=== PATIENT | female | born 1985 | race Caucasian/White ===

== ENCOUNTER → 2018-08-15 05:33 | Observation (INO) ==
[2018-08-15 03:33] LABS: Bilirubin,Urine Negative (Negative); Blood,Urine Negative (Negative); Clarity,Urine Clear (Clear); Color,Urine Yellow (Yellow); Glucose,Urine (UA) Normal (Normal); Ketones,Urine Negative (Negative); Leukocyte Esterase,Urine Negative (Negative); Nitrite,Urine Negative (Negative); PH,Urine 7.5 pH Units (5.0-8.0); Protein,Urine Negative (Neg-Trace); Specific Gravity,Urine 1.018 (1.010-1.025); Urobilinogen,Urine Normal (Normal)
[2018-08-15 03:41] LABS: Amphetamine Screen,Urine Negative ng/mL (Cutoff=1000); Barbiturate Screen,Urine Negative ng/mL (Cutoff=200); Benzodiazepines Screen,Urine Negative ng/mL (Cutoff=200); Cannabinoid Screen,Urine Negative ng/mL (Cutoff = 50); Cocaine Screen,Urine Negative ng/mL (Cutoff= 300); Opiate Screen,Urine Negative ng/mL (Cutoff=300); Phencyclidine Screen,Urine Negative ng/mL (Cutoff=25)
== END | disposition home or self-care (01) ==
LOC: 1NENULAB
PROVIDERS: ADMIT Registered Nurse; ATTEND Registered Nurse

== ENCOUNTER 2018-08-15 15:06 | Inpatient (IN) ==
[2018-08-15 16:05] LABS: Amphetamine Screen,Urine Negative ng/mL (Cutoff=1000); Barbiturate Screen,Urine Negative ng/mL (Cutoff=200); Benzodiazepines Screen,Urine Negative ng/mL (Cutoff=200); Cannabinoid Screen,Urine Negative ng/mL (Cutoff = 50); Cocaine Screen,Urine Negative ng/mL (Cutoff= 300); Opiate Screen,Urine Negative ng/mL (Cutoff=300); Phencyclidine Screen,Urine Negative ng/mL (Cutoff=25)
[2018-08-15] MEDS ORDERED: Metoclopramide 10 MG/2 ML VIAL IVP PRN (16:27)
[2018-08-15] MEDS ORDERED: Lidocaine 1% 20 ML MDV INFILT PRN (16:27)
[2018-08-15] MEDS ORDERED: Naloxone 0.4 MG/ML INJ IVP PRN (16:27)
[2018-08-15] MEDS ORDERED: Ondansetron 4 MG/2 ML VIAL IVP PRN (16:27)
[2018-08-15] MEDS ORDERED: *HR* Nalbuphine 10 MG/ML AMPUL IVP PRN (16:27)
[2018-08-15] MEDS ORDERED: Famotidine 20 MG/2 ML VIAL IVP PRN (16:27)
[2018-08-15] MEDS ORDERED: Ringers Solution, Lactated 1,000 ML IVC SCH (16:30)
[2018-08-15] MEDS ORDERED: Ringers Solution, Lactated 1,000 ML ONE (16:41)
[2018-08-15 17:31] LABS: Basophils # 0.1 K/mcL (0.0-0.2); Basophils % 0.4 %; Eosinophils % 0.2 %; Hematocrit 42.5 % (35.3-44.9); Hemoglobin 14.3 g/dL (11.5-15.4); Immature Granulocytes % 0.5 % (0-4); Lymphocytes # 1.5 K/mcL (0.6-4.6); Lymphocytes % 10.9 %; Mean Corpuscular HGB Conc 33.6 g/dL (31.6-35.5); Mean Corpuscular Hemoglobin 30.9 pg (28.0-33.3); Mean Corpuscular Volume 91.8 fL (83.0-100.0); Mean Platelet Volume 12.1 fL (9.4-12.4); Monocytes # 0.8 K/mcL (0.0-1.3); Monocytes % 5.9 %; Neutrophils # 11.5 K/mcL (1.6-8.9); Platelet Count 154 K/mcL (140-400); Red Blood Count 4.63 M/mcL (3.82-4.97); Segmented Neutrophils % 82.1 %
[2018-08-15] MEDS ORDERED: Oxytocin 20 units/ LR 1000 mL 20 UNIT/1,000 ML BAG IVC ONE (17:39)
[2018-08-15] MEDS ORDERED: Epidural Premix (fent/bupiv) 110 ML EP ONE (17:40)
[2018-08-15] MEDS ORDERED: Epidural Premix (fent/bupiv) 110 ML EP SCH (17:45)
--- NOTE | 2018-08-15 17:46 | OB/GYN History & Physical ---
Date of Encounter: 08/15/18 Time of Encounter: 17:44 Assessment and Plan (1) 37 weeks gestation of Current visit: No Status: Acute History of Present Illness Chief complaint: contractions HPI: Ms. Rivas is a 32 year old female who presents to labor and delivery in labor. She is currently 37 weeks and 5 days. On presentation she was now 3-4 cm progressing. She is elinor every 2 minutes. She has a category 1 tracing. She is breathing through her contractions. is vertex with a bulging membrane. She has allergies to Claritin and amoxicillin. She is currently on vitamins and iron sulfate . Socially she denies tobacco, alcohol, illicit drug use. Obstetric history significant for one term vaginal delivery. Family history significant for hypertension, kidney cancer, type 2 diabetes, lung cancer. Past Med Surg Social Fam HX - Past Medical History Medical history: migraine Psychiatric history: no psych history - Past Surgical History Additional surgical history: wisdom teeth - Social History Smoking Status: Never smoker Smokeless Tobacco Status: No Alcohol use: none Drug use: none - Family History Mother Adopted: No Family Member Ethnicity: Non- Living Status: Still Living Hx Family Cardiac Disorders: No Hx Family Respiratory Disorders: No Hx Family Cancer: No Hx Family GI Disorders: No Hx Family Genitourinary Disorders: No Hx Family Endocrine Disorder: No Hx Family Musculoskeletal Disorders: No Hx Family Neuromuscular Disorders: No Hx Family Neurologic Disorders: No Hx Family HEENT Disorders: No Hx Family Autoimmune Disorders: No Hx Family Reproductive Disorders: No Hx Family Psychosocial Disorders: No Hx Family Medical Disorders: No Obstetrical History - Pregnancies : 2 Para: 1 Livin Medications and Allergies Vitamins 150 mg PO DAILY 04/30/16 [History] Ferrous Sulfate/Vit C/FA [Folitab 500 Caplet] 1 each PO DAILY 08/15/18 [History] Allergy/AdvReac Type Severity Reaction Status Date / Time pseudoephedrine AdvReac See Verified 08/15/18 17:20 [facility] Comments Review of System OB All systems PM: reviewed and no additional remarkable complaints except as stated Exam - Constitutional Constitutional: well developed, well nourished, no acute distress, average body habitus - HEENT HEENT: EOMI, PERRL, Normocephaly - Neck Neck exam: full ROM - Lungs Respiratory exam: CTAB - Cardiovascular Cardiovascular exam: RRR - Abdomen Abdomen: Present: bowel sounds normal, gravid, non tender - Extremities Extremities exam: full ROM - Vagina Vagina: Present: normal moisture - Cervix Dilation: 7 Effacement: 100 Station: +2 - Uterus Uterus exam: Present: normal size Results Result Diagrams: 08/15/18 17:00 Abnormal lab results WBC 14.0 K/mcL (4.3-11.1) H 08/15/18 17:00 11.5 K/mcL (1.6-8.9) H 08/15/18 17:00 All other labs normal. - VTE Reasons for not Prescribing Prophylaxis: Treatment not Indicated - Low risk for VTE
--- NOTE | 2018-08-15 18:14 | Anesthesia Procedures ---
Date of Encounter: 08/15/18 Time of Encounter: 18:13 Procedures: Anesthesia - Epidural/Spinal Patient ID/Chart reviewed: Yes Patient examined: Yes OB Eval: Gestational age: 37.5 OB Eval: : 2 OB Eval: Hx Para: 1 OB Eval: Dilated at (cm): 7 OB Eval: Contractions: Non-stressed pattern Consent Obtained: Yes Supplemental Oxygen: None/Room Air Site Prep: Aseptic Technique, Sterile prep and drape, Povidone-Iodine 1% Patient position: upright Local Anesthetic: Lidocaine 1% Amount of Local Anesthetic used: 3 Touhy Needle Gauge: 18 Touhy Needle Depth (cm): 6 Catheter Depth at Skin (cm): 20 Test Dose (1.5% Lido + Epi): Volume given (mls): 5 Test Dose Result: Negative Loading Dose: Other: 10mls of epidural pharm bag premix Loading Dose Administered: Thru Catheter Infusion Med: 0.125% Bupivacaine w/ 2 mcg/ml Fentanyl Infusion Rate (mls/hr): 18 ([id number]) Catheter Secured in Place: Tegaderm, Tape Interspace Used: L4-L5 Loss of Resistance (LJ): Yes Blood: No CSF: No Paresthesia: No Spinal Needle Gauge: 25 (Sprotte dural puncture) Procedure: pt tolerated procedure well. no complications. vss. fhr stable.
--- NOTE | 2018-08-15 18:16 | Anesthesia Evaluation PreOp ---
Date of Encounter: 08/15/18 Time of Encounter: 18:14 - Past History Planned Operation: CHALO Cardiac History: Denies any Significant Hx Pulmonary History: Denies Any Significant HX JAVA PROGRAMMING PROFESSOR History: Denies Any Significant HX Other Medical History: Denies Any Significant HX Anesthesia History: No Prior Anesthetic Complications, Past Anesthesia : Yes (37.5) Alcohol Use: none Drug use: none Medications and Allergies Vitamins 150 mg PO DAILY 04/30/16 [History] Ferrous Sulfate/Vit C/FA [Folitab 500 Caplet] 1 each PO DAILY 08/15/18 [History] Allergy/AdvReac Type Severity Reaction Status Date / Time pseudoephedrine AdvReac See Verified 08/15/18 17:20 [From [facility]] Comments - Meds/Allergy Pre-op Review Medications Reviewed: Yes Allergies Reviewed: Yes Beta Blockers on Current Med List: No Anesthesia Results - Labs 08/15/18 17:00 Anesthesia Exam O2 Sat Height 1.78 m Height 1.78 m Weight 71.668 kg Weight 158 kg NPO (# of Hours): 4 Pain Scale: 10 Pain Scale Used: Numeric (1 - 10) - HEENT Pupil (Motor): Pupils equal Mallampati: II Teeth: Normal Oral Opening: Greater than 3 - JAVA PROGRAMMING PROFESSOR LOC: Oriented JAVA PROGRAMMING PROFESSOR Motor: Normal RUE, Normal LUE, Normal RLE, Normal LLE, Normal Face JAVA PROGRAMMING PROFESSOR Sensory: Normal: RUE, LUE, RLE, LLE, Face - Cardiac Rhythm: Regular Murmur: None JVD: No Carotid Bruit: No - Pulmonary Breath Sounds: bilateral Clear Respiratory Effort: Symmetrical Anesthesia Assess/Plan ASA Score: 2 Level of consciousness: Cooperative, Oriented Anesthetic Plan: General, Epidural Autologous Blood: Yes Monitoring Plan: Standard Monitors
--- NOTE | 2018-08-15 18:24 | Event Note ---
Date of Encounter: 08/15/18 Time of Encounter: 18:23 Patient doing well. Contractions every 2 minutes. Cervical check performed. Patient 9 cm, 100% effaced and +1 station. Artificial rupture membranes performed. Clear fluid returned. Category 1 tracing noted. Patient with epidural. Expectant management
[2018-08-15] MEDS ORDERED: Lidocaine/EPI 1:200k 2% PF 20 ML VIAL ONE (18:58)
--- NOTE | 2018-08-15 19:28 | OB/GYN Procedure Note ---
Delivery - Delivery Date: 08/15/18 Provider: Dipak Sepulveda Intrapartum events: none Delivery induction: none Delivery augmentation: rupture of membranes Delivery monitor: external FHT, external uterine Anesthesia: epidural Quantitated Blood Loss: 100 - (s) Infant A Delivery Date: 08/15/18 Infant Delivery Time: 19:10 Presentation: vertex Position: OA Route of delivery: Gender: Male Viability: Viable at 1 minute: 8 at 5 mins: 9 Shoulder Dystocia: not encountered Specimens collected: cord blood Placenta: spontaneous Cord: 3 umbilical vessels - Repair Episiotomy: none Laceration Description: Vaginal - Complications Delivery complications: none - Disposition Mom disposition: stable in LDR Mamou disposition: stable in LDR - Comments Comments: This patient progressed rapidly to complete and pushing. She had a rapid spontaneous vaginal delivery of a male infant over an intact perineum. Infant's head was in the perineum with 2 pushes. The rest of the infant was then delivered with 1 push. Infant cried immediately upon delivery. The cord was cut to cut after 1 minute. It was passed to nursing in attendance. Cord blood was obtained. The placenta was delivered spontaneously and intact. There were no cervical periurethral or perineal lacerations noted. There was a small vaginal laceration which was repaired with one 3 marked suture in a [id number]. Patient delivered a male . Weight is pending his mother skin the skin. Apgars are 8 at 1 minute and 9 at 5 minutes. Estimated blood loss 100 mL.
[2018-08-15] MEDS ORDERED: Measles/Mumps/Rubella Vacc 0.5 ML VIAL SQ PRN (21:48)
[2018-08-15] MEDS ORDERED: Acetaminophen 325 MG TABLET PO PRN (21:48)
[2018-08-15] MEDS ORDERED: Oxytocin 20 units/ LR 1000 mL 20 UNIT/1,000 ML BAG IVC SCH (21:48)
[2018-08-15] MEDS: Ibuprofen 600 MG TABLET PO PRN (22:04)
[2018-08-16] MEDS ORDERED: Benzocaine/Menthol 56 GM AEROSOL SPRAY TP PRN (01:01)
[2018-08-16] MEDS: Ibuprofen 600 MG TABLET PO PRN ×3 (04:12→19:31)
[2018-08-16 08:09] LABS: Basophils # 0.1 K/mcL (0.0-0.2); Basophils % 0.4 %; Eosinophils # 0.1 K/mcL (0.0-0.6); Eosinophils % 0.8 %; Hematocrit 38.9 % (35.3-44.9); Immature Granulocytes % 0.4 % (0-4); Lymphocytes # 2.3 K/mcL (0.6-4.6); Lymphocytes % 15.7 %; Mean Corpuscular HGB Conc 32.4 g/dL (31.6-35.5); Mean Corpuscular Hemoglobin 30.6 pg (28.0-33.3); Mean Corpuscular Volume 94.4 fL (83.0-100.0); Monocytes % 6.8 %; Neutrophils # 10.9 K/mcL (1.6-8.9); Platelet Count 140 K/mcL (140-400); Red Blood Count 4.12 M/mcL (3.82-4.97); Red Cell Distribution Width 12.8 % (11.5-14.5); Segmented Neutrophils % 75.9 %; White Blood Count 14.3 K/mcL (4.3-11.1)
[2018-08-16 08:12] LABS: Hemoglobin 12.6 g/dL (11.5-15.4)
[2018-08-16] MEDS ORDERED: Prenatal Vit/FA 1 EACH TABLET PO SCH (09:00)
--- NOTE | 2018-08-16 10:15 | Discharge Summary ---
Date of Encounter: 08/16/18 Time of Encounter: 10:12 - Discharge Diagnosis (1) Vaginal delivery Priority: Primary Status: Acute Comments: Pt meeting milestones. She desires discharge home this evening. Lochia light, voiding, tolerating regular diet. Reports good mood. (2) Breast feeding status of mother Priority: Secondary Status: Acute - Discharge Medications Prescriptions: New Ibuprofen [Motrin] 600 mg PO Q6HR PRN #30 tablet PRN Reason: Cramping Benzocaine/Menthol [place] [Dermoplast [place]] 1 appl TP QID PRN aerosol PRN Reason: See Comments Docusate [Colace] 100 mg PO BID #30 capsule Continued Vitamins 150 mg PO DAILY Ferrous Sulfate/Vit C/FA [Folitab 500 Caplet] 1 each PO DAILY Home Medications: Vitamins 150 mg PO DAILY 04/30/16 [History] Ferrous Sulfate/Vit C/FA [Folitab 500 Caplet] 1 each PO DAILY 08/15/18 [History] Benzocaine/Menthol [place] [Dermoplast [place]] 1 appl TP QID PRN aerosol 08/16/18 [Rx] Docusate [Colace] 100 mg PO BID #30 capsule 08/16/18 [Rx] Ibuprofen [Motrin] 600 mg PO Q6HR PRN #30 tablet 08/16/18 [Rx] Allergies/Adverse Reactions: Allergy/AdvReac Type Severity Reaction Status Date / Time pseudoephedrine AdvReac See Verified 08/15/18 17:20 [From [facility]] Comments Data Procedures and tests throughout hospitalization: Laboratory Tests 08/15/18 08/15/18 08/16/18 15:30 17:00 07:32 WBC 14.0 H 14.3 H RBC 4.63 4.12 Hgb 14.3 12.6 D Hct 42.5 38.9 MCV 91.8 94.4 MCH 30.9 30.6 MCHC 33.6 32.4 RDW 13.0 12.8 Plt Count 154 140 MPV 12.1 12.0 Immature Gran % 0.5 0.4 Seg Neutrophils % 82.1 75.9 Lymphocytes % 10.9 15.7 Monocytes % 5.9 6.8 Eosinophils % 0.2 0.8 Basophils % 0.4 0.4 Neutrophils # 11.5 H 10.9 H Lymphocytes # 1.5 2.3 Monocytes # 0.8 1.0 Eosinophils # 0.0 0.1 Basophils # 0.1 0.1 Urine Opiates Screen Negative Ur Buprenorphine Scrn Negative Ur Barbiturates Screen Negative Ur Phencyclidine Scrn Negative Ur Amphetamines Screen Negative U Benzodiazepines Scrn Negative Urine Cocaine Screen Negative U Marijuana (THC) Screen Negative Ur Drug Screen Interp See Below Labs on day of discharge: Labs from last 24 hours 08/16/18 08/15/18 08/15/18 07:32 17:00 15:30 WBC 14.3 H 14.0 H RBC 4.12 4.63 Hgb 12.6 D 14.3 Hct 38.9 42.5 MCV 94.4 91.8 MCH 30.6 30.9 MCHC 32.4 33.6 RDW 12.8 13.0 Plt Count 140 154 MPV 12.0 12.1 Immature Gran % 0.4 0.5 Seg Neutrophils % 75.9 82.1 Lymphocytes % 15.7 10.9 Monocytes % 6.8 5.9 Eosinophils % 0.8 0.2 Basophils % 0.4 0.4 Neutrophils # 10.9 H 11.5 H Lymphocytes # 2.3 1.5 Monocytes # 1.0 0.8 Eosinophils # 0.1 0.0 Basophils # 0.1 0.1 Urine Opiates Screen Negative Ur Buprenorphine Scrn Negative Ur Barbiturates Screen Negative Ur Phencyclidine Scrn Negative Ur Amphetamines Screen Negative U Benzodiazepines Scrn Negative Urine Cocaine Screen Negative U Marijuana (THC) Screen Negative Ur Drug Screen Interp See Below Date of admission: 08/15/18 17:32 Primary care physician: Lenny Randle MD Consults: 08/15/18 21:48 Consult to [employer] Technician [CONS] Routine Comment: Vaginal delivery, consult needed Discharging clinician: Milla Irene Anticipated date of discharge: 08/16/18 - Patient Status Disposition: Home, Self-Care Condition: Good Overall status at discharge: patient is progressing back to baseline - Discharge Instructions Follow Up With: Lenny Randle MD [Primary Care Provider] - Dipak Sepulveda MD [Partnered Physician] - - Diet and Activity Activity: increase activity as tolerated Diet: regular diet Hospital Course Reason for admission: active labor Delivery: Episiotomy: none Laceration: vaginal side wall Other procedures: none complications: none Discharge diagnosis: IUP at term delivered baby: male Hospital course: - Delivery Date: 08/15/18 Provider: Dipak Sepulveda Intrapartum events: none Delivery induction: none Delivery augmentation: rupture of membranes Delivery monitor: external FHT, external uterine Anesthesia: epidural Quantitated Blood Loss: 100 - Infant (s) A Delivery Date: 08/15/18 Delivery Time: 19:10 Presentation: vertex Position: OA Route of delivery: Gender: Male Viability: Viable at 1 minute: 8 at 5 mins: 9 Shoulder Dystocia: not encountered Specimens collected: cord blood Placenta: spontaneous Cord: 3 umbilical vessels - Repair Episiotomy: none Laceration Description: Vaginal - Complications Delivery complications: none - Disposition Mom disposition: home PPD1 disposition: home with mother, Time Attestation: Total time spent providing and/or coordinating discharge services: Time Spent: Less than 30 minutes Exam - Constitutional Vitals: Temp Pulse Resp BP Pulse Ox 97.6 F 70 16 94/57 96 08/16/18 08:57 08/16/18 08:57 08/16/18 08:57 08/16/18 08:57 08/16/18 04:15 General appearance IM: A&O X 3 - Respiratory Respiratory exam: Present: CTAB - Cardiovascular Cardiovascular exam IM: Present: RRR - GI/Abdominal GI/Abdominal exam IM: soft - Uterine Tone: Firm Uterus Position: 2 Fingers Below Umbilicus - Extremities Exam Extremities exam IM: Present: normal inspection - Neurological Exam Neurological exam: normal gait, oriented X3 - Psychiatric Additional comments: reports good mood
[2018-08-16 16:27] VITALS: BP 105/65
== END 2018-08-16 23:00 | disposition home or self-care (01) | DRG 807 ==
LOC: 1NENULAB → 1NENUOBS 21:48
PROVIDERS: ADMIT Advanced Practice Midwife; ATTEND Advanced Practice Midwife